=== PATIENT | male | born 1995 | race Two or more races ===

== ENCOUNTER 2023-06-30 14:47 | Emergency (ER) | payer MEDICAID ==
[~2023-06-30] VITALS: Ht 165.1 cm; Wt 46.7 kg
[2023-06-30 14:52] VITALS: TEMP 98.9
[2023-06-30 16:10] LABS: BASOPHILS % (AUTO) 0.4 % (0.0-2.0); EOSINOPHILS # (AUTO) 0.1 K/uL (0.0-0.7); EOSINOPHILS % (AUTO) 0.9 % (0.0-6.0); HEMATOCRIT 38 % (39-51); HEMOGLOBIN 12.8 g/dL (13.5-17.5); LYMPHOCYTES # (AUTO) 2.3 K/uL (0.8-4.8); LYMPHOCYTES % (AUTO) 22.1 % (20.0-44.0); MEAN CORPUSCULAR HEMOGLOBIN 32 PG (26.0-33.0); MEAN CORPUSCULAR HGB CONC 34 g/dl (31.0-36.0); MEAN CORPUSCULAR VOLUME 93 fL (80-96); MONOCYTES # (AUTO) 0.9 K/uL (0.1-1.30); MONOCYTES % (AUTO) 8.6 % (2.0-12.0); PLATELET COUNT (AUTO) 408 K/uL (150-450); RED BLOOD CELL COUNT(AUTO) 4.04 MIL/uL (4.5-6.0); RED CELL DISTRIBUTION WIDTH 17.1 % (11.5-15.0); WHITE BLOOD COUNT (AUTO) 10.3 K/uL (4.3-11.0)
[2023-06-30 16:20] LABS: CALCIUM, SERUM 9.9 mg/dL (8.5-10.1); CREATININE 0.3 mg/dL (0.6-1.3); POTASSIUM 3.6 mmol/L (3.5-5.1)
[2023-06-30 16:34] LABS: ALBUMIN 3.4 g/dL (3.4-5.0); BILIRUBIN,DIRECT 0.1 mg/dL (0.0-0.2); BILIRUBIN,TOTAL 0.2 mg/dL (0.2-1.0); TOTAL PROTEIN, SERUM 7.2 g/dL (6.4-8.2)
[2023-06-30] MEDS ORDERED: NA P133E RC (18:18)
[2023-06-30] MEDS ORDERED: RIVA10TA GT (18:18)
[2023-06-30] MEDS ORDERED: CHLO473M2 MM (18:18)
[2023-06-30] MEDS ORDERED: CALC667T8 GT (18:18)
[2023-06-30] MEDS ORDERED: METO50TA16 GT (18:18)
[2023-06-30] MEDS ORDERED: ASCO500C18 GT (18:18)
[2023-06-30] MEDS ORDERED: ACET160S GT (18:18)
[2023-06-30] MEDS ORDERED: BISA10SU61 RC (18:18)
[2023-06-30] MEDS ORDERED: LORA2ORA5 SL (18:18)
[2023-06-30] MEDS ORDERED: MULT9LIQ6 GT (18:18)
[2023-06-30] MEDS ORDERED: ACET-2605 GT (18:18)
[2023-06-30] MEDS ORDERED: LACT100027 GT (18:18)
[2023-06-30] MEDS ORDERED: [UNRECOGNIZED DRUG - CODE] PO (18:18)
[2023-06-30] MEDS ORDERED: LEVE500S9 GT (18:18)
[2023-06-30] MEDS ORDERED: IPRA0.2S9 IH ×2 (18:18)
[2023-06-30] MEDS ORDERED: MAGN400O6 GT (18:18)
[2023-06-30] MEDS ORDERED: Modafinil GT (18:18)
[2023-06-30] MEDS ORDERED: CRAN300T GT (18:18)
[2023-06-30] MEDS ORDERED: ZINC220C6 GT (18:18)
[2023-06-30] MEDS ORDERED: PANT40SU2 GT (18:18)
[2023-06-30] MEDS ORDERED: CARB30DR4 EACHEYE (18:18)
[2023-06-30] MEDS ORDERED: DOCU250C14 GT (18:18)
[2023-06-30] MEDS ORDERED: FERR220S2 GT (18:18)
[2023-06-30] MEDS ORDERED: [UNRECOGNIZED DRUG - OTHER] GT (18:18)
[2023-06-30] MEDS ORDERED: EPOE1000 SQ (18:18)
[2023-06-30] MEDS ORDERED: LEVA1.2528 IH ×2 (18:18)
[2023-06-30] MEDS ORDERED: ACET325T53 GT (18:18)
[2023-06-30 19:07] VITALS: O2SAT 100
[2023-06-30 20:46] LABS: APPEARANCE,URINE CLOUDY (CLEAR); BILIRUBIN,URINE NEGATIVE (NEGATIVE); BLOOD, URINE NEGATIVE Ery/uL (NEGATIVE); COLOR,URINE YELLOW (YELLOW); KETONES,URINE NEGATIVE (NEGATIVE); LEUKOCYTE ESTERASE ,URINE NEGATIVE (NEGATIVE); NITRITE, URINE NEGATIVE (NEGATIVE); PH,URINE 7.5 (5.0-8.0); PROTEIN,URINE NEGATIVE (NEGATIVE); UGLUCOSE NEGATIVE (NEGATIVE); UROBILINOGEN,URINE 0.2 EU/dL (0.2)
[2023-06-30 20:50] LABS: ADD URINE CULTURE NO; BACTERIA,URINE None seen /HPF (None Seen); RBC,URINE 0-2 /HPF (0-2); WBC,URINE 0-2 /HPF (0-3)
[2023-06-30 20:51] LABS: COARSE GRANULAR CASTS,URINE Few /LPF (None Seen); SQUAMOUS EPITHELIAL CELL,UR 0-2 /HPF (None Seen); URINE AMORPHOUS PHOSPHATES Moderate /HPF (None Seen)
[2023-06-30] MEDS ORDERED: MULTIVIT W/MINERALS 1 TAB TABLET ONE (22:20)
[2023-06-30] MEDS ORDERED: METOPROLOL SUCCINATE 25 MG TAB.SR.24H ONE (22:20)
[2023-06-30] MEDS: MULTIVITAMIN LIQ 5 ML UDC GT SCH (22:23)
[2023-06-30 22:24] VITALS: BP 113/89
[2023-06-30] MEDS: ASCORBIC ACID 500 MG TABLET GT SCH (22:24)
[2023-06-30] MEDS: ZINC SULFATE 220 MG CAPSULE GT SCH (22:24)
[2023-06-30] MEDS: METOPROLOL SUCCINATE 25 MG TAB.SR.24H GT SCH (22:24)
[2023-06-30] MEDS: RIVAROXABAN 10 MG TABLET GT SCH (22:43)
[2023-07-01] MEDS ORDERED: QUETIAPINE FUMARATE 25 MG TABLET GT SCH (09:00)
[2023-07-01] MEDS ORDERED: CHLORHEXIDINE GLUCONATE 15 ML UDC MM SCH (09:00)
[2023-07-01] MEDS ORDERED: POLYETHYLENE GLYCOL 3350 17 GM POWD.PACK GT SCH (09:00)
[2023-07-01] MEDS ORDERED: LEVETIRACETAM SOL (5 ML) 100 MG/ML UDC GT SCH (09:00)
[2023-07-01] MEDS ORDERED: VALPROIC ACID 250 MG/5 ML UDC GT ONE (09:00)
[2023-07-01] MEDS ORDERED: CALCIUM ACETATE 667 MG CAP/TAB GT SCH (09:00)
[2023-07-01] MEDS ORDERED: DOCUSATE SODIUM LIQ 100 MG/10 ML UDC GT ONE (18:00)
== END 2023-07-01 04:40 | disposition short-term general hospital (02) ==
LOC: ER 14:50
DX: Q28.2 Arteriovenous malformation of cerebral vessels (principal); G91.9 Hydrocephalus, unspecified; I10 Essential (primary) hypertension; I48.91 Unspecified atrial fibrillation; K21.9 Gastro-esophageal reflux disease without esophagitis; Z79.899 Other long term (current) drug therapy; Z20.822 Contact with and (suspected) exposure to COVID-19
CPT/HCPCS: 36415; 70450-TC; 71045-TC; 80048-TC; 80076-TC; 81001; 83690-TC; 85025-TC